=== PATIENT | female | born 1965 | race Caucasian/White ===

== ENCOUNTER → 2016-04-25 | Outpatient (CLI) | payer BC | LOC: RAD 08:09 | PROVIDERS: ATTEND Internal Medicine Medical Oncology | DX: C50.919 Malignant neoplasm of unspecified site of unspecified female breast (principal) | CPT/HCPCS: 78306; A9503; Q9969 ==

== ENCOUNTER 2016-04-29 13:10 | Day surgery (SDC) | payer BC ==
[2016-04-28 10:21] LABS: HEMATOCRIT 42.5 % (36.0-47.0); HEMOGLOBIN 14.3 g/dL (12.0-15.5); HGB HCT DIFFERENCE 0.4; MEAN CORPUSCULAR HEMOGLOBIN 28.2 pg (27.0-33.4); MEAN CORPUSCULAR HGB CONC 33.7 g/dL (32.0-36.0); MEAN CORPUSCULAR VOLUME 84 fl (80-97); RED BLOOD COUNT 5.09 10^6/uL (3.72-5.28); RED CELL DISTRIBUTION WIDTH 13.4 % (11.5-14.0); WHITE BLOOD COUNT 8.2 10^3/uL (4.0-10.5)
[2016-04-28 10:47] LABS: ANION GAP 12 (5-19); BLOOD UREA NITROGEN 18 mg/dL (7-20); CALCIUM 9.5 mg/dL (8.4-10.2); CARBON DIOXIDE 28 mmol/L (22-30); CHLORIDE 101 mmol/L (98-107); CREATININE RESULT 0.99 mg/dL (0.52-1.25); GLUCOSE 86 mg/dL (75-110); SODIUM 141.4 mmol/L (137-145)
--- NOTE | 2016-04-28 20:46 | EKG REPORT ---
SEVERITY:- ABNORMAL ECG - SINUS RHYTHM LEFT AXIS DEVIATION LEFT VENTRICULAR HYPERTROPHY BORDERLINE T ABNORMALITIES, INFERIOR LEADS : Confirmed by: Modesta Paiz 28-Apr-2016 20:46:19
[~2016-04-29 13:10] MED LIST: ACETAMINOPHEN 325 MG TABLET PO PRN; CEFAZOLIN 1 GM/D5W RTU 1 GM/50 ML RTUPB IV PRN; GLYCOPYRROLATE INJ 0.4 MG/2 ML VIAL ONE; LIDOCAINE 0.5% INJ-PF (5 MG/ML) 50 ML SDV INJ PRN; LIDOCAINE 2% INJ-PF (20 MG/ML) 10 ML AMPUL ONE; NEOSTIGMINE METHYLSULFATE 10 MG/10 ML VIAL ONE; ONDANSETRON HCL INJ/PF 4 MG/2 ML SDV ONE; RINGERS SOLUTION,LACTATED 1,000 ML IV PRN; ROCURONIUM BROMIDE INJ 50 MG/5 ML VIAL IV ONE; SUCCINYLCHOLINE CHLORIDE INJ 200 MG/10 ML VIAL ONE
[2016-04-29] MEDS ORDERED: BUPIVACAINE HCL 0.25 % INJ/PF (2.5 MG/1 ML) 30 ML VIAL ONE (14:08)
[2016-04-29] MEDS ORDERED: MIDAZOLAM 2 MG/2 ML INJ ONE (14:31)
[2016-04-29] MEDS: MIDAZOLAM 2 MG/2 ML INJ ONE ×2 (15:00→15:05)
[2016-04-29] MEDS ORDERED: FENTANYL CITRATE INJ/PF 250 MCG/5 ML AMPULE ONE (15:21)
[2016-04-29] MEDS ORDERED: PROPOFOL INJ 200 MG/20 ML VIAL IV ONE (15:22)
[2016-04-29] MEDS ORDERED: DEXMEDETOMIDINE INJ 80 MCG/20 ML VIAL IV ONE (15:22)
[2016-04-29] MEDS ORDERED: ACETAMINOPHEN 100 ML IV ONE (16:16)
--- NOTE | 2016-04-29 17:18 | Operative Report ---
Operative Report DATE OF SURGERY: 04/29/16 PREOPERATIVE DIAGNOSIS: Recurrent left breast cancer POSTOPERATIVE DIAGNOSIS: Recurrent left breast cancer OPERATION: Wide local excision of recurrent left breast cancer SURGEON: SHERRIE GUTIERREZ ANESTHESIA: GA TISSUE REMOVED OR ALTERED: Left breast mass COMPLICATIONS: None ESTIMATED BLOOD LOSS: minimal INTRAOPERATIVE FINDINGS: Approximately 3 cm subcutaneous mass located at the inferior flap of the left ashlie-breast PROCEDURE: Informed consent was obtained. Patient was brought to the operating room and placed on the operating room table in the supine position. After saturation induction of general anesthesia, patient's left breast was prepped and draped in usual sterile fashion. Pt had a flap reconstruction of the left breast. About 2-3 cm inferior to the scar edge of the mid portion of the inferior flap the subcutaneous mass was palpable. Incision was made at the inferior flaps scar. Wide ellipse of skin inferior to the scar was taken to obtain 2 cm margins from the mass and also encompassing bx needle tract. Subcutaneous fat was excised attempting to keep about 2 cm margins circumferentially around the palpable mass. The specimen was oriented with a short stitch marking superior border long stitch marking the lateral border. Palpation of the specimen revealed that the mass was in the center with good gross margins. Hemostasis was achieved with electrocautery. The flaps appeared well vascularized with no evidence of ischemia. Wound was closed with deep dermal interrupted Vicryl sutures followed by Dermabond closure of the skin. Marcaine was injected at the incision site. Patient tolerated procedure well with no apparent complications and was taken to the recovery area in stable condition.
[2016-04-29] MEDS ORDERED: OXYCODONE-ACETAMINOPHEN 5-325 MG TABLET PO PRN (17:21)
[2016-04-29] MEDS ORDERED: ONDANSETRON HCL INJ/PF 4 MG/2 ML SDV IV PRN (17:21)
[2016-04-29] MEDS ORDERED: RINGERS SOLUTION,LACTATED 1,000 ML IV PRN (17:21)
--- NOTE | 2016-04-29 17:21 | PDOC DISCHARGE SUMMARY ---
Discharge Summary (SDC) - Discharge Final Diagnosis: Recurrent left breast cancer Date of Surgery: 04/29/16 Discharge Date: 04/29/16 Condition: Good Treatment or Instructions: Left breast wide local excision. May discharge patient home when met discharge criteria. Follow-up with me next week. May shower in 24 hours. Stay active but avoid strenuous activity. Prescriptions: Oxycodone HCl/Acetaminophen [Percocet 5-325 mg Tablet] 1 tab PO ASDIR PRN #25 tablet PRN Reason: Discharge Diet: As Tolerated Discharge Activity: Activity As Tolerated - Stay active but avoid strenuous activity. Report the Following to Your Physician Immediately: Fever over 101 Degrees, Unusual Bleeding, Redness, Drainage-Foul Smelling
[2016-04-29] MEDS ORDERED: ALBUTEROL SULFATE 0.083% NEB 2.5 MG/3 ML AMPUL NEB ONE (17:40)
[2016-04-29] MEDS ORDERED: NALOXONE HCL INJ/PF 0.4 MG/1 ML SDV ONE (18:08)
[2016-04-29 21:13] VITALS: BP 130/68
[2016-04-30] MEDS ORDERED: (PENDING PHARMACY ID) (Lisinopril/Hydrochlorothiazide [Lisinopril-Hctz 20-25 Mg Tab] 1 EAC PO SCH (10:00)
[2016-04-30] MEDS ORDERED: LISINOPRIL 10 MG TABLET PO SCH (10:00)
[2016-04-30] MEDS ORDERED: HYDROCHLOROTHIAZIDE 25 MG TABLET PO SCH (10:00)
== END 2016-04-29 22:05 | disposition home or self-care (01) ==
LOC: OROUT 13:10 → 4S 19:24 → OROUT 22:05
PROVIDERS: ATTEND Surgery
PROC: 0HBU3ZX Excision of Left Breast, Percutaneous Approach, Diagnostic (ICD-10-PCS; principal; 2016-04-29 16:00)
DX: C50.912 Malignant neoplasm of unspecified site of left female breast (principal); N63 Unspecified lump in breast; I10 Essential (primary) hypertension; Z85.3 Personal history of malignant neoplasm of breast; Z79.899 Other long term (current) drug therapy; Z87.891 Personal history of nicotine dependence
CPT/HCPCS: 93005; 36415 ×2; 84132; 85027; 81025; 80048; 93010; 19120; J2250; J0690; J3490 ×3; J3010; J2310; J0330; J2405; J2704; J0131; 400; 88305; 88341; 88342

== ENCOUNTER → 2016-05-08 | Outpatient (CLI) | payer BC | LOC: RAD 09:18 | PROVIDERS: ATTEND Internal Medicine Medical Oncology | DX: C50.919 Malignant neoplasm of unspecified site of unspecified female breast (principal); R07.9 Chest pain, unspecified; R10.2 Pelvic and perineal pain; R10.13 Epigastric pain | CPT/HCPCS: 71260; 74177 ==

== ENCOUNTER 2016-06-24 09:34 | Day surgery (SDC) | payer BC ==
[~2016-06-24 09:34] MED LIST changes: -ACETAMINOPHEN 325 MG TABLET PO PRN; +BACITRACIN INJ 50,000 UNIT VIAL IR PRN; -CEFAZOLIN 1 GM/D5W RTU 1 GM/50 ML RTUPB IV PRN; -GLYCOPYRROLATE INJ 0.4 MG/2 ML VIAL ONE; -LIDOCAINE 0.5% INJ-PF (5 MG/ML) 50 ML SDV INJ PRN; -LIDOCAINE 2% INJ-PF (20 MG/ML) 10 ML AMPUL ONE; -NEOSTIGMINE METHYLSULFATE 10 MG/10 ML VIAL ONE; -ONDANSETRON HCL INJ/PF 4 MG/2 ML SDV ONE; -RINGERS SOLUTION,LACTATED 1,000 ML IV PRN; -ROCURONIUM BROMIDE INJ 50 MG/5 ML VIAL IV ONE; -SUCCINYLCHOLINE CHLORIDE INJ 200 MG/10 ML VIAL ONE
[2016-06-24 10:36] LABS: HEMATOCRIT 45.4 % (36.0-47.0); HEMOGLOBIN 15.7 g/dL (12.0-15.5); HGB HCT DIFFERENCE 1.7; MEAN CORPUSCULAR HEMOGLOBIN 28.6 pg (27.0-33.4); MEAN CORPUSCULAR HGB CONC 34.5 g/dL (32.0-36.0); MEAN CORPUSCULAR VOLUME 83 fl (80-97); RED BLOOD COUNT 5.48 10^6/uL (3.72-5.28); WHITE BLOOD COUNT 7.2 10^3/uL (4.0-10.5)
[2016-06-24] MEDS ORDERED: DIAZEPAM 5 MG TABLET ONE (10:44)
[2016-06-24] MEDS ORDERED: OXYCODONE-ACETAMINOPHEN 5-325 MG TABLET ONE ×2 (10:44→13:41)
[2016-06-24 11:07] LABS: ANION GAP 14 (5-19); BLOOD UREA NITROGEN 32 mg/dL (7-20); CALCIUM 10.2 mg/dL (8.4-10.2); CARBON DIOXIDE 24 mmol/L (22-30); CHLORIDE 102 mmol/L (98-107); CREATININE RESULT 1.05 mg/dL (0.52-1.25); GLUCOSE 103 mg/dL (75-110); POTASSIUM 4.6 mmol/L (3.6-5.0); SODIUM 140.3 mmol/L (137-145)
[2016-06-24] MEDS ORDERED: FENTANYL CITRATE INJ/PF 100 MCG/2 ML AMPUL ONE (11:56)
[2016-06-24] MEDS ORDERED: MIDAZOLAM 2 MG/2 ML INJ ONE (11:56)
[2016-06-24] MEDS ORDERED: LIDOCAINE 0.5% INJ-PF (5 MG/ML) 50 ML SDV ONE (11:59)
[2016-06-24] MEDS ORDERED: CEFAZOLIN INJ 1 GM VIAL ONE (12:11)
--- NOTE | 2016-06-24 13:20 | EKG REPORT ---
SEVERITY:- ABNORMAL ECG - SINUS RHYTHM LEFT AXIS DEVIATION LEFT VENTRICULAR HYPERTROPHY : Confirmed by: Otto Menendez MD 24-Jun-2016 13:20:18
--- NOTE | 2016-06-24 13:50 | PDOC DISCHARGE SUMMARY ---
Discharge Summary (SDC) - Discharge Final Diagnosis: Recurrent left breast cancer. Date of Surgery: 06/24/16 Discharge Date: 06/24/16 Condition: Fair Treatment or Instructions: #1 activities within moderation encouraged. #2 follow up in my office by appointment in about 1 week. Call for appointment. #3 the wounds covered clean and dry until office visit. #4 hold off on school/work until evaluation in office. #5 may shower in 48 hours, keep operated area as dry as possible. #6 discharge from ambulatory when ASU criteria met. #7 medications per medication reconciliation sheet. #8 Percocet by prescription.. Also may have one Percocet up to every 2 hours when necessary for pain greater than 4 out of 10 while in the ASU Prescriptions: Oxycodone HCl/Acetaminophen [Percocet 5-325 mg Tablet] 1 tab PO ASDIR PRN #15 tab PRN Reason: Discharge Diet: As Tolerated Respiratory Treatments at Home: Deep Breathing/Coughing Discharge Activity: Activity As Tolerated Report the Following to Your Physician Immediately: Shortness of Breath, Unusual Bleeding
[2016-06-24 15:07] VITALS: BP 116/79
--- NOTE | 2016-06-24 15:37 | Operative Report ---
Operative Report DATE OF SURGERY: 06/24/16 PREOPERATIVE DIAGNOSIS: Recurrent breast cancer POSTOPERATIVE DIAGNOSIS: Recurrent breast cancer OPERATION: #1 ultrasound evaluation of the left internal jugular vein. #2 insertion of Port-A-Cath via real-time access in the left internal jugular vein on ultrasound guidance. #3 angiogram and interpretation. SURGEON: RUFINO REED ASSOCIATE CURATOR: none ANESTHESIA: Moderate Sedation TISSUE REMOVED OR ALTERED: Not applicable. COMPLICATIONS: None ESTIMATED BLOOD LOSS: 10 mL. INTRAOPERATIVE FINDINGS: Satisfactory evaluation and access in the left internal jugular vein which was patent. Approximately 1 cm across. Satisfactory position and function of the catheter. The tip just down in the right atrium. Easy egress of blood and ingress of heparinized solution. Smooth flow of contrast through the right atrium ventricle and pulmonary outflow tract. PROCEDURE: After obtaining informed consent, the patient was taken to the [employer] Block Floor Installer and positioned supine. The neck and chest were prepared with chlorhexidine and draped out with sterile linen. Of note the patient was desirous of having this on the left side. She understands normally we use the right given the choice. After the " universal timeout", in which it was verified that the patient continued to receive antibiotic, the procedure commenced. A steriley sheathed ultrasound probe was used to evaluate the left internal jugular vein. Local anesthesia was infiltrated adjacent to the probe. Access into the left internal jugular vein was obtained using a micropuncture needle, followed by micropuncture wire and then a micropuncture catheter. This was followed by introduction of a 0.035 guidewire the tip of which was placed down into the inferior vena cava . The port sites was marked , locally anesthetized and incision made. Dissection now proceeded to the deep subcutaneous subcutaneous tissues so that a pocket for the port was made. Meticulous hemostasis was secured and the catheter was tunneled between the 2 incisions. Proximally, the catheter was now positioned using a peel-away sheath. Distally the catheter was tailored to an appropriate length and then mated to the port using the contained fixating device. The port was now placed in the pocket and the catheter optimally positioned. The port was accessed with a Mccullough needle and an angiogram done under digital subtraction. The findings as dictated. With adequate and satisfactory positioning, both lumens of the chamber were irrigated with heparinized solution. The wounds were now closed using interrupted 3-0 PDS to the subcutaneous tissues and a continuous subcuticular suture of 4-0 Monocryl to the skin. These are reinforced with Steri-Strips over benzoin and then dressings applied. Time: 0.3 Minute. Dose: 29 m Gy Contrast: 5 mls. Isovue 300. Copies of the dictated operative report for Dr. Rufino Webb MD.
== END 2016-06-24 15:15 | disposition home or self-care (01) ==
LOC: CCL 09:34
PROVIDERS: ATTEND Surgery
PROC: 05H533Z Insertion of Infusion Device into Right Subclavian Vein, Percutaneous Approach (ICD-10-PCS; principal; 2016-06-24)
DX: C50.912 Malignant neoplasm of unspecified site of left female breast (principal); I10 Essential (primary) hypertension; Z85.3 Personal history of malignant neoplasm of breast; Z88.5 Allergy status to narcotic agent; Z79.899 Other long term (current) drug therapy; Z87.891 Personal history of nicotine dependence
CPT/HCPCS: 36415; 85027; 80048; 36561; 76937; 77001; 71010; 93005; 93010; C1788; C1752; Q9967; J2250; J3490 ×2; J0690; J3010; J1644

== ENCOUNTER 2016-11-16 09:45 | Emergency (ER) | payer BC ==
[2016-11-16] MEDS ORDERED: COLCHICINE 0.6 MG TABLET PO ONE ×2 (10:25→11:18)
[2016-11-16] MEDS ORDERED: DEXAMETHASONE SOD PHOS INJ 10 MG/1 ML VIAL IM ONE (10:25)
--- NOTE | 2016-11-16 10:27 | ER Document Report ---
ED General - General Chief Complaint: Foot Pain Stated Complaint: FOOT PAIN Time Seen by Provider: 11/16/16 10:00 Mode of Arrival: Ambulatory Information source: Patient Notes: 51 yr old female presents with complaints of pain in her joints. Pt notes last week she had swelling in the 1st digit of the left foot, then on the right foot , now both feet , both knees and both hips aches. Pt has hx of breast ca, denies any calf or muscle pain. father has hx of gout TRAVEL OUTSIDE OF THE [place] IN LAST 30 DAYS: No - HPI Onset: Last week Onset/Duration: Persistent Quality of pain: Achy Severity: Moderate Pain Level: 3 Associated symptoms: Body/muscle aches Exacerbated by: Movement Relieved by: Denies Similar symptoms previously: No Recently seen / treated by doctor: Yes - normal PET scan recently - Related Data Allergies/Adverse Reactions: propoxyphene napsylate [From [employer]MyDream Interactivet-N 100] Allergy (Severe, Verified 11/16/16 09:51) Anaphylaxis Past Medical History - Social History Smoking Status: Former Smoker Cigarette use (# per day): No Chew tobacco use (# tins/day): No Smoking Education Provided: No Frequency of alcohol use: None Drug Abuse: None Family History: None, Other - gout - Past Medical History Cardiac Medical History: Reports: Hx Hypertension Denies: Hx Coronary Artery Disease, Hx Heart Attack Pulmonary Medical History: Denies: Hx Asthma, Hx Bronchitis, Hx COPD, Hx Pneumonia Neurological Medical History: Denies: Hx Cerebrovascular Accident, Hx Seizures Renal/ Medical History: Denies: Hx Peritoneal Dialysis Musculoskeltal Medical History: Denies Hx Arthritis Past Surgical History: Reports: Hx Abdominal Surgery - Immunizations Hx Diphtheria, Pertussis, Tetanus Vaccination: No Review of Systems - Review of Systems Notes: REVIEW OF SYSTEMS: CONSTITUTIONAL : Denies fever, chills, or sweats. Denies recent illness. EENT: Denies eye, ear, throat, or mouth pain or symptoms. Denies nasal or sinus congestion or discharge. Denies throat, tongue, or mouth swelling or difficulty swallowing. CARDIOVASCULAR: Denies chest pain. Denies palpitations or racing or irregular heart beat. Denies ankle edema. RESPIRATORY: Denies cough, cold, or chest congestion. Denies shortness of breath, difficulty breathing, or wheezing. GASTROINTESTINAL: Denies abdominal pain or distention. Denies nausea, vomiting , or diarrhea. Denies blood in vomitus, stools, or per rectum. Denies black, tarry stools. Denies constipation. GENITOURINARY: Denies difficulty urinating, painful urination, burning, frequency, blood in urine, or discharge. FEMALE GENITOURINARY: Denies vaginal bleeding, heavy or abnormal periods, irregular periods. Denies vaginal discharge or odor. MUSCULOSKELETAL: admits ot joint swelling, pain and warmth SKIN: Denies rash, lesions or sores. HEMATOLOGIC : Denies easy bruising or bleeding. LYMPHATIC: Denies swollen, enlarged glands. NEUROLOGICAL: Denies confusion or altered mental status. Denies passing out or loss of consciousness. Denies dizziness or lightheadedness. Denies headache. Denies weakness or paralysis or loss of use of either side. Denies problems with gait or speech. Denies sensory loss, numbness, or tingling. Denies seizures. PSYCHIATRIC: Denies anxiety or stress. Denies depression, suicidal ideation, or homicidal ideation. ALL OTHER SYSTEMS REVIEWED AND NEGATIVE. PHYSICAL EXAMINATION: GENERAL: Well-appearing, well-nourished and in no acute distress. HEAD: Atraumatic, normocephalic. EYES: Pupils equal round and reactive to light, extraocular movements intact, conjunctiva are normal. ENT: Nares patent, oropharynx clear without exudates. Moist mucous membranes. NECK: Normal range of motion, supple without lymphadenopathy LUNGS: Breath sounds clear to auscultation bilaterally and equal. No wheezes rales or rhonchi. HEART: Regular rate and rhythm without murmurs ABDOMEN: Soft, nontender, nondistended abdomen. No guarding, no rebound. No masses appreciated. Female : deferred Musculoskeletal: Normal range of motion, no pitting or edema. No cyanosis. no calf pain, no muscle invovlemnt, only bony tenderness in the foot knees and hips NEUROLOGICAL: Cranial nerves grossly intact. Normal speech, normal gait. Normal sensory, motor exams PSYCH: Normal mood, normal affect. SKIN: Warm, Dry, normal turgor, no rashes or lesions noted. Dictation was performed using [employer] voice recognition software Physical Exam - Vital signs Vitals: Temp Pulse Resp BP Pulse Ox 98.8 F 104 H 20 146/96 H 98 11/16/16 09:50 11/16/16 09:50 11/16/16 09:50 11/16/16 09:50 11/16/16 09:50 Course - Re-evaluation Re-evalutation: 11/16/16 10:26 obvious initial concern is for dvt but there is absolutely no msucle or calf or thigh pain. it is all limited to the joints. Pt also had normal RF screening in the past. Will treat as gout given presentation but labs are pending as well. 11/16/16 11:18 Uric acid was elevated, patient's presentation is consistent with gout will be treated as such with very close follow-up After performing a Medical Screening Examination, I estimate there is LOW risk for RUPTURED ESOPHAGUS, PNEUMOTHORAX, PULMONARY EMBOLISM, ACUTE CORONARY SYNDROME, OR THORACIC AORTIC DISSECTION, thus I consider the discharge disposition reasonable. I have reevaluated this patient multiple times and no significant life threatening changes are noted. The patient and I have discussed the diagnosis and risks, and we agree with discharging home with close follow-up. We also discussed returning to the Emergency Department immediately if new or worsening symptoms occur. We have discussed the symptoms which are most concerning (e.g., bloody sputum, worsening pain or shortness of breath) that necessitate immediate return. - Vital Signs Vital signs: Temp Pulse Resp BP Pulse Ox 98.8 F 104 H 20 146/96 H 98 11/16/16 09:50 11/16/16 09:50 11/16/16 09:50 11/16/16 09:50 11/16/16 09:50 - Laboratory Result Diagrams: 11/16/16 10:30 11/16/16 10:30 Laboratory results interpreted by me: 11/16/16 11/16/16 10:30 10:30 Lymphocytes % 12.6 L Monocytes % 13.4 H Est GFR (Non-Af Amer) 58 L Uric Acid 8.7 H Alkaline Phosphatase 142 H Discharge - Discharge Clinical Impression: Gout attack Qualifiers: Gout site: toe Gout etiology: unspecified cause Laterality: unspecified laterality Qualified Code(s): M10.9 - Gout, unspecified Joint pain Qualifiers: Joint pain location: foot Laterality: bilateral Qualified Code(s): M79.671 - Pain in right foot; M79.672 - Pain in left foot Condition: Stable Instructions: Gout ([facility]), Gout Diet ([facility]) Additional Instructions: Follow up with your physician tomorrow for further care or return to the ED IMMEDIATELY if symptoms worsen or new concerns occur. If you cannot afford to follow up with your primary care physician a list of low cost clinics have been provided at the end of your discharge papers as well. Prescriptions: Prednisone [Deltasone 20 mg Tablet] 3 tab PO DAILY 5 Days tablet
[2016-11-16] MEDS ORDERED: DEXAMETHASONE SOD PHOS INJ 10 MG/1 ML VIAL IV ONE (10:39)
[2016-11-16 10:47] LABS: ABSOLUTE BASOPHILS # (AUTO) 0.1 10^3/uL (0.0-0.2); ABSOLUTE EOSINOPHILS # (AUTO) 0.2 10^3/uL (0.0-0.6); ABSOLUTE LYMPHOCYTES (AUTO) 1.2 10^3/uL (0.5-4.7); ABSOLUTE MONOCYTES (AUTO) 1.2 10^3/uL (0.1-1.4); ABSOLUTE NEUT (AUTO) 6.6 10^3/uL (1.7-8.2); EOSINOPHILS % (AUTO) 2.3 % (0-6); HEMATOCRIT 36.3 % (36.0-47.0); HEMOGLOBIN 12.4 g/dL (12.0-15.5); HGB HCT DIFFERENCE 0.9; LYMPHOCYTES % (AUTO) 12.6 % (13-45); MEAN CORPUSCULAR HEMOGLOBIN 28.8 pg (27.0-33.4); MEAN CORPUSCULAR HGB CONC 34.1 g/dL (32.0-36.0); MEAN CORPUSCULAR VOLUME 85 fl (80-97); MONOCYTES % (AUTO) 13.4 % (3-13); RED BLOOD COUNT 4.28 10^6/uL (3.72-5.28); RED CELL DISTRIBUTION WIDTH 13.3 % (11.5-14.0); SEGMENTED NEUTROPHILS % (AUTO) 70.7 % (42-78); WHITE BLOOD COUNT 9.3 10^3/uL (4.0-10.5)
[2016-11-16 11:11] LABS: ALANINE AMINOTRANSFERASE 23 U/L (9-52); ALBUMIN 3.9 g/dL (3.5-5.0); ALKALINE PHOSPHATASE 142 U/L (38-126); ANION GAP 11 (5-19); ASPARTATE AMINO TRANSFERASE 20 U/L (14-36); BILIRUBIN,DIRECT 0.4 mg/dL (0.0-0.4); BILIRUBIN,TOTAL 0.7 mg/dL (0.2-1.3); BLOOD UREA NITROGEN 15 mg/dL (7-20); CALCIUM 9.5 mg/dL (8.4-10.2); CARBON DIOXIDE 26 mmol/L (22-30); CHLORIDE 102 mmol/L (98-107); GLUCOSE 95 mg/dL (75-110); POTASSIUM 4.1 mmol/L (3.6-5.0); SODIUM 138.7 mmol/L (137-145); TOTAL PROTEIN 7.2 g/dL (6.3-8.2); URIC ACID 8.7 mg/dL (2.5-7.5)
[2016-11-16 11:31] VITALS: BP 148/94
[2016-11-19 07:22] LABS: LYME DISEASE IGG AND IGM AB <0.91 ISR (0.00-0.90)
== END 2016-11-16 11:39 | disposition home or self-care (01) ==
LOC: ER 09:45
DX: M10.9 Gout, unspecified (principal); M79.671 Pain in right foot; M79.672 Pain in left foot; M79.1 Myalgia; I10 Essential (primary) hypertension; Z85.3 Personal history of malignant neoplasm of breast
CPT/HCPCS: 36591; 99283; 96374; 36415; 82962; 84550; 85025; 80053; 86618 ×2; 86617 ×2; J1100

== ENCOUNTER → 2017-10-14 | Outpatient (CLI) | payer BC ==
--- NOTE | 2017-10-14 10:08 | RADIOLOGY REPORT (SQ) ---
EXAM DESCRIPTION: CT CHEST WITH COMPLETED DATE/TIME: 10/14/2017 9:58 am REASON FOR STUDY: BREAST CA C50.912 MALIGNANT NEOPLASM OF UNSPECIFIED SITE OF LEFT FEMAL COMPARISON: 05/08/2016 TECHNIQUE: CT scan of the chest performed using helical scanning technique with dynamic intravenous contrast injection. Images reviewed with lung, soft tissue and bone windows. Reconstructed coronal and sagittal MPR and MIP images reviewed. All images stored on PACS. All CT scanners at this facility use dose modulation, iterative reconstruction, and/or weight based d osing when appropriate to reduce radiation dose to as low as reasonably achievable (ALARA). [facility]: Dose Right [facility]: CareDose [facility]: Dose Right [facility]: Teradose 4D [facility]: GoEuro CONTRAST TYPE AND DOSE: See separate report of the same date. RENAL FUNCTION: See separate report. RADIATION DOSE: . LIMITATIONS: None. FINDINGS: LUNGS AND PLEURA: No opacities, nodules, masses. No pneumothorax. No effusions. HILAR AND MEDIASTINAL STRUCTURES: No identified masses or abnormal nodes. HEART AND VASCULAR STRUCTURES: No aneurysm or dissection. No central pulmonary emboli. No pericardi al effusion. HARDWARE: None in the chest. UPPER ABDOMEN: See separate report of the CT of the abdomen. THYROID AND OTHER SOFT TISSUES: Bilateral axillary clips. BONES: No acute findings. OTHER: Left-sided port tip in the SVC. IMPRESSION: No evidence of metastatic disease. TECHNICAL DOCUMENTATION: JOB ID: [id number] Quality ID # [id number]: Final reports with documentation of one or more dose reduction techniques (e.g., Au tomated exposure control, adjustment of the mA and/or kV according to patient size, use of iterative reconstruction technique) 2010 [employer]- All Rights Reserved Reading location - IP/workstation name: [email or web address]
--- NOTE | 2017-10-14 10:15 | RADIOLOGY REPORT (SQ) ---
EXAM DESCRIPTION: CT ABD/PELVIS WITH IV ONLY COMPLETED DATE/TIME: 10/14/2017 9:58 am REASON FOR STUDY: BREAST CA C50.912 MALIGNANT NEOPLASM OF UNSPECIFIED SITE OF LEFT FEMAL COMPARISON: 05/08/2016 TECHNIQUE: CT scan of the abdomen and pelvis performed using helical scanning technique with dynamic intravenous contrast injection. No oral contrast. Images reviewed with lung, soft tissue, and bone windows. Reconstructed coronal and sagittal MPR images reviewed. Delayed images for evaluation of the urinary system also acquired. All images stored on PACS. All CT scanners at this facility use dose modulation, iterative reconstruction, and/or weight based d osing when appropriate to reduce radiation dose to as low as reasonably achievable (ALARA). [facility]: Dose Right [facility]: CareDose [facility]: Dose Right [facility]: Teradose 4D [facility]: Lindsey Shell CONTRAST TYPE AND DOSE: contrast/concentration: Isovue 350.00 mg/ml; Total Contrast Delivered: 100.0 ml; Total Saline Delivered: 72.0 ml RENAL FUNCTION: Creatinine 1.0 RADIATION DOSE: CT Rad equipment meets quality standard of care and radiation dose reduction techniq ues were employed. CTDIvol: 15.3 - 16.1 mGy. DLP: 2569 mGy-cm.. LIMITATIONS: None. FINDINGS: LOWER CHEST: No significant findings. No nodules or infiltrates. LIVER: Normal size. No masses. No dilated ducts. SPLEEN: Normal size. No focal lesions. PANCREAS: No masses. No significant calcifications. No adjacent inflammation or peripancreatic fluid collections. Pancreatic duct not dilated. GALLBLADDER: No identified stones by CT criteria. No inflammatory changes to suggest cholecystitis. ADRENAL GLANDS: No significant masses or asymmetry. RIGHT KIDNEY AND URETER: No solid masses. No significant calcifications. No hydronephrosis or hyd roureter. LEFT KIDNEY AND URETER: No solid masses. No significant calcifications. No hydronephrosis or hydr oureter. AORTA AND VESSELS: No aneurysm. No dissection. Renal arteries, SMA, celiac without stenosis. RETROPERITONEUM: No retroperitoneal adenopathy, hemorrhage or masses. BOWEL AND PERITONEAL CAVITY: No masses or inflammatory changes. No free fluid or peritoneal masses. APPENDIX: Normal. PELVIS: No mass. No free fluid. Normal bladder. ABDOMINAL WALL: Postsurgical changes anterior abdominal wall. BONES: No acute findings. OTHER: No other significant finding. IMPRESSION: No evidence of metastatic disease. TECHNICAL DOCUMENTATION: JOB ID: [id number] Quality ID # [id number]: Final reports with documentation of one or more dose reduction techniques (e.g., Au tomated exposure control, adjustment of the mA and/or kV according to patient size, use of iterative reconstruction technique) 2010 [email or web address]- All Rights Reserved Reading location - IP/workstation name: [email or web address]
== END ==
LOC: RAD 09:03
PROVIDERS: ATTEND Internal Medicine Medical Oncology
DX: C50.912 Malignant neoplasm of unspecified site of left female breast (principal)
CPT/HCPCS: 71260; 74177; 82565

== ENCOUNTER 2018-11-20 13:59 | Inpatient (IN) | payer BC, OTHER ==
[2018-11-20] MEDS ORDERED: ACETAMINOPHEN 325 MG TABLET PO ONE (14:37)
[2018-11-20] MEDS ORDERED: RINGERS SOLUTION,LACTATED 1,000 ML IV ONE ×3 (14:37→19:26)
[2018-11-20] MEDS ORDERED: ONDANSETRON HCL INJ/PF 4 MG/2 ML SDV IV ONE (14:37)
--- NOTE | 2018-11-20 14:39 | ER Document Report ---
ED Medical Screen (RME) - General Chief Complaint: Headache Stated Complaint: CHILLS Time Seen by Provider: 11/20/18 14:36 Primary Care Provider: TA IGNACIO NP [Primary Care Provider] - Follow up as needed Mode of Arrival: Wheelchair Information source: Patient Notes: Patient presents complaining of fever and chills for the past 4 days. Patient also reports nausea vomiting diarrhea. Patient denies any abdominal tenderness. Patient does complain of bilateral flank pain. No cough or cold symptoms. hx: Breast cancer, hypertension, bilateral mastectomy with reconstruction. Port-A-Cath insertion I have greeted and performed a rapid initial assessment of this patient. A comprehensive ED assessment and evaluation of the patient, analysis of test results and completion of the medical decision making process will be conducted by additional ED providers. TRAVEL OUTSIDE OF THE [place] IN LAST 30 DAYS: No - Related Data Allergies/Adverse Reactions: propoxyphene napsylate [From Darvocet-N 100] Allergy (Severe, Verified 11/20/18 14:32) Anaphylaxis Past Medical History - Past Medical History Cardiac Medical History: Reports: Hx Hypertension Denies: Hx Coronary Artery Disease, Hx Heart Attack Pulmonary Medical History: Denies: Hx Asthma, Hx Bronchitis, Hx COPD, Hx Pneumonia Neurological Medical History: Denies: Hx Cerebrovascular Accident, Hx Seizures Renal/ Medical History: Denies: Hx Peritoneal Dialysis Musculoskeltal Medical History: Denies Hx Arthritis Past Surgical History: Reports: Hx Abdominal Surgery - Immunizations Hx Diphtheria, Pertussis, Tetanus Vaccination: No Physical Exam - Vital signs Vitals: Temp Pulse Resp BP Pulse Ox 102.8 F H 122 H 22 H 131/76 H 97 11/20/18 14:07 11/20/18 14:07 11/20/18 14:07 11/20/18 14:07 11/20/18 14:07 - Cardiovascular Rhythm: Tachycardia Heart sounds: S1 appreciated, S2 appreciated - Back Back: CVA tenderness Course - Vital Signs Vital signs: Temp Pulse Resp BP Pulse Ox 102.8 F H 122 H 22 H 131/76 H 97 11/20/18 14:07 11/20/18 14:07 11/20/18 14:07 11/20/18 14:07 11/20/18 14:07 Doctor's Discharge - Discharge Referrals: SANDEE,TA, RECYCLING COORDINATOR [Primary Care Provider] - Follow up as needed
--- NOTE | 2018-11-20 15:22 | RADIOLOGY REPORT (SQ) ---
EXAM DESCRIPTION: CHEST 2 VIEWS COMPLETED DATE/TIME: 11/20/2018 3:07 pm REASON FOR STUDY: fever COMPARISON: None. EXAM PARAMETERS: NUMBER OF VIEWS: two views TECHNIQUE: Digital Frontal and Lateral radiographic views of the chest acquired. RADIATION DOSE: NA LIMITATIONS: none FINDINGS: LUNGS AND PLEURA: No opacities, masses or pneumothorax. No pleural effusion. MEDIASTINUM AND HILAR STRUCTURES: No masses or contour abnormalities. HEART AND VASCULAR STRUCTURES: Heart normal size. No evidence for failure. BONES: No acute findings. HARDWARE: Venous access catheter at the cavoatrial junction. OTHER: No other significant finding. IMPRESSION: NO ACUTE RADIOGRAPHIC FINDING IN THE CHEST. TECHNICAL DOCUMENTATION: JOB ID: [id number] [employer] All Rights Reserved Reading location - IP/workstation name: [email or web address]
[2018-11-20 16:07] LABS: ABSOLUTE LYMPHOCYTES (AUTO) 0.6 10^3/uL (0.5-4.7); ABSOLUTE MONOCYTES (AUTO) 0.5 10^3/uL (0.1-1.4); ABSOLUTE NEUT (AUTO) 5.7 10^3/uL (1.7-8.2); BASOPHILS % (AUTO) 0.3 % (0-2); EOSINOPHILS % (AUTO) 0.4 % (0-6); HEMATOCRIT 32.8 % (36.0-47.0); HEMOGLOBIN 11.3 g/dL (12.0-15.5); LYMPHOCYTES % (AUTO) 8.3 % (13-45); MEAN CORPUSCULAR HEMOGLOBIN 29.2 pg (27.0-33.4); MEAN CORPUSCULAR HGB CONC 34.4 g/dL (32.0-36.0); MEAN CORPUSCULAR VOLUME 85 fl (80-97); MONOCYTES % (AUTO) 7.4 % (3-13); PLATELET COUNT 200 10^3/uL (150-450); RED BLOOD COUNT 3.88 10^6/uL (3.72-5.28); RED CELL DISTRIBUTION WIDTH 13.4 % (11.5-14.0); SEGMENTED NEUTROPHILS % (AUTO) 83.6 % (42-78); TOTAL CELLS COUNTED % (AUTO) 100 %; WHITE BLOOD COUNT 6.8 10^3/uL (4.0-10.5)
[2018-11-20 16:12] LABS: VENOUS BLOOD HCO3 20.4 mmol/L (20-32); VENOUS BLOOD PCO2 31.3 mmHg (35-63); VENOUS BLOOD PH 7.43 (7.30-7.42)
[2018-11-20 16:23] LABS: PROTHROMBIN TIME 15.3 SEC (11.4-15.4)
[2018-11-20 16:25] LABS: ALBUMIN 4.2 g/dL (3.5-5.0); ALKALINE PHOSPHATASE 129 U/L (38-126); ANION GAP 14 (5-19); ASPARTATE AMINO TRANSFERASE 35 U/L (14-36); BILIRUBIN,DIRECT 0.3 mg/dL (0.0-0.4); BILIRUBIN,TOTAL 0.4 mg/dL (0.2-1.3); BLOOD UREA NITROGEN 50 mg/dL (7-20); CALCIUM 9.5 mg/dL (8.4-10.2); CARBON DIOXIDE 21 mmol/L (22-30); CHLORIDE 101 mmol/L (98-107); GLUCOSE 133 mg/dL (75-110); POTASSIUM 4.6 mmol/L (3.6-5.0)
[2018-11-20] MEDS ORDERED: MORPHINE SULFATE 10 MG/ML INJ IV ONE ×2 (17:27→20:49)
--- NOTE | 2018-11-20 17:27 | ER Document Report ---
ED General - General Chief Complaint: Nausea/Vomiting/Diarrhea Stated Complaint: CHILLS Time Seen by Provider: 11/20/18 14:36 Primary Care Provider: TA IGNACIO NP [Primary Care Provider] - Follow up as needed Mode of Arrival: Wheelchair TRAVEL OUTSIDE OF THE [place] IN LAST 30 DAYS: No - HPI Notes: Patient presents with 2 days of worsening bilateral flank pain and development of fever. She has 102 fever in the emergency department. She is a 2-year cancer survivor and is currently on a chemo pill. She has a port in her left upper chest wall due to all the lymph nodes that they have taken out due to her cancer. He has been having intermittent vomiting. Denies any chest pain cough congestion or shortness of breath. Denies any dysuria. She has had kidney infections in the past and it feels similar. She denies any history of kidney stones. Denies any history of vaginal discharge smells or concern for vaginal infection. - Related Data Allergies/Adverse Reactions: propoxyphene napsylate [From [employer]-N 100] Allergy (Severe, Verified 11/20/18 14:32) Anaphylaxis Past Medical History - General Information source: Patient - Social History Smoking Status: Former Smoker Family History: None, Other Patient has suicidal ideation: No Patient has homicidal ideation: No - Past Medical History Cardiac Medical History: Reports: Hx Hypertension Denies: Hx Coronary Artery Disease, Hx Heart Attack Pulmonary Medical History: Denies: Hx Asthma, Hx Bronchitis, Hx COPD, Hx Pneumonia Neurological Medical History: Denies: Hx Cerebrovascular Accident, Hx Seizures Renal/ Medical History: Denies: Hx Peritoneal Dialysis Musculoskeletal Medical History: Denies Hx Arthritis Past Surgical History: Reports: Hx Abdominal Surgery - Immunizations Hx Diphtheria, Pertussis, Tetanus Vaccination: No Review of Systems - Review of Systems Constitutional: Fever EENT: No symptoms reported Cardiovascular: No symptoms reported Respiratory: No symptoms reported Gastrointestinal: See HPI Genitourinary: No symptoms reported Female Genitourinary: No symptoms reported Musculoskeletal: No symptoms reported Skin: No symptoms reported Hematologic/Lymphatic: No symptoms reported Neurological/Psychological: No symptoms reported Physical Exam - Vital signs Vitals: Temp Pulse Resp BP Pulse Ox 102.8 F H 122 H 22 H 131/76 H 97 11/20/18 14:07 11/20/18 14:07 11/20/18 14:07 11/20/18 14:07 11/20/18 14:07 - General General appearance: Appears well, Alert - HEENT Head: Normocephalic, Atraumatic Eyes: Normal Pupils: PERRL - Respiratory Respiratory status: No respiratory distress Chest status: Nontender Breath sounds: Normal Chest palpation: Normal - Cardiovascular Rhythm: Tachycardia Heart sounds: Normal auscultation Murmur: No - Abdominal Inspection: Normal Distension: No distension Bowel sounds: Normal Tenderness: Nontender - Back Back: Normal, Nontender, CVA tenderness - Extremities General upper extremity: Normal inspection, Normal ROM General lower extremity: Normal inspection, Normal ROM - Neurological Neuro grossly intact: Yes Cognition: Normal Orientation: AAOx4 Course - Re-evaluation Re-evalutation: 11/20/18 20:35 Patient does show some signs of urinary tract infection but not consistent with normal pyelonephritis. CT shows no acute abnormalities. She was febrile with bilateral flank pain coming to the emergency department but hemodynamically stable with a lactate of 0.9. Fluids were provided. She will be admitted antibiotics provided pending blood and urine cultures at this time. - Vital Signs Vital signs: Temp Pulse Resp BP Pulse Ox 102.8 F H 122 H 22 H 131/76 H 97 11/20/18 14:07 11/20/18 14:07 11/20/18 14:07 11/20/18 14:07 11/20/18 14:07 - Laboratory Result Diagrams: 11/20/18 15:45 11/20/18 15:45 Laboratory results interpreted by me: 11/20/18 11/20/18 11/20/18 15:45 15:45 15:45 Hgb 11.3 L Hct 32.8 L Lymph % (Auto) 8.3 L Seg Neutrophils % 83.6 H VBG pH 7.43 H VBG pCO2 31.3 L Sodium 135.6 L Carbon Dioxide 21 L BUN 50 H Creatinine 2.55 H Est GFR ( Amer) 24 L Est GFR (MDRD) Non-Af 20 L Glucose 133 H Alkaline Phosphatase 129 H Urine Protein Urine Urobilinogen Ur Leukocyte Esterase 11/20/18 19:35 Hgb Hct Lymph % (Auto) Seg Neutrophils % VBG pH VBG pCO2 Sodium Carbon Dioxide BUN Creatinine Est GFR ( Amer) Est GFR (MDRD) Non-Af Glucose Alkaline Phosphatase Urine Protein 100 H Urine Urobilinogen 2.0 H Ur Leukocyte Esterase TRACE H Discharge - Discharge Clinical Impression: Pyelonephritis Condition: Good Disposition: ADMITTED INPATIENT Admitting Provider: Jon (Hospitalist) Unit Admitted: Telemetry Referrals: TA IGNACIO NP [Primary Care Provider] - Follow up as needed
--- NOTE | 2018-11-20 17:55 | RADIOLOGY REPORT (SQ) ---
EXAM DESCRIPTION: CT ABD/PELVIS NO ORAL OR IV COMPLETED DATE/TIME: 11/20/2018 5:36 pm REASON FOR STUDY: b/l flank pain, fever, JEAN CLAUDE COMPARISON: 05/08/2016. TECHNIQUE: CT scan of the abdomen and pelvis performed without intravenous or oral contrast. Images reviewed with lung, soft tissue, and bone windows. Reconstructed coronal and sagittal MPR images revi ewed. All images stored on PACS. All CT scanners at this facility use dose modulation, iterative reconstruction, and/or weight based d osing when appropriate to reduce radiation dose to as low as reasonably achievable (ALARA). [facility]: Dose Right [facility]: CareDose [facility]: Dose Right [facility]: Teradose 4D [facility]: [employer] RADIATION DOSE: CT Rad equipment meets quality standard of care and radiation dose reduction techniq ues were employed. CTDIvol: 14.5 - 19.5 mGy. DLP: 1171 mGy-cm.mGy. LIMITATIONS: None. FINDINGS: LOWER CHEST: No abnormality. NON-CONTRASTED LIVER, SPLEEN, ADRENALS: Liver: No abnormality. Spleen: No abnormality. Adrenals: No abnormality. PANCREAS: No abnormality. GALLBLADDER: No abnormality. RIGHT KIDNEY AND URETER: No abnormality. No renal or ureteral calculi. LEFT KIDNEY AND URETER: No abnormality. No renal or ureteral calculi. AORTA AND RETROPERITONEUM: Atherosclerotic change of the infrarenal abdominal aorta, iliac,, and femo ral vessels. . No retroperitoneal masses or adenopathy. BOWEL AND PERITONEAL CAVITY: No obvious masses or inflammatory changes. No free fluid. APPENDIX: Normal. PELVIS, BLADDER, AND ABDOMINAL WALL:Urinary bladder: No abnormality. Uterus and adnexal regions: N o abnormality. BONES: Spondylolysis of L5 with grade 1 anterolisthesis of L5 on S1. Degenerative disc disease L5-S1 . OTHER: Surgical clips of the abdominal wall. IMPRESSION: NO SIGNIFICANT OR ACUTE PROCESS IN THE ABDOMEN OR PELVIS. COMMENT: Quality ID # [id number]: Final reports with documentation of one or more dose reduction techniques (e.g., Automated exposure control, adjustment of the mA and/or kV according to patient size, use of iterative reconstruction technique) TECHNICAL DOCUMENTATION: JOB ID: [id number] SC-[id number] 2010 [employer]- All Rights Reserved Reading location - IP/workstation name: [email or web address]
[2018-11-20 19:48] LABS: APPEARANCE,URINE CLOUDY; BILIRUBIN,URINE NEGATIVE (NEGATIVE); COLOR,URINE AMBER; GLUCOSE, URINE NEGATIVE (NEGATIVE); KETONES,URINE NEGATIVE (NEGATIVE); LEUKOCYTE ESTERASE,URINE TRACE (NEGATIVE); NITRITE,URINE NEGATIVE (NEGATIVE); PROTEIN,URINE 100 mg/dL (NEGATIVE); URINE SPECIFIC GRAVITY 1.012
[2018-11-20] MEDS ORDERED: CEFTRIAXONE 1 GM/D5W RTU 1 GM/50 ML RTUPB IV ONE (20:34)
[2018-11-20] MEDS ORDERED: IPRATROPIUM/ALBUTEROL 0.5-2.5 MG/3 ML AMPUL NEB PRN (20:44)
[2018-11-20] MEDS ORDERED: MAG HYDROX/AL HYDROX/SIMETH SUSP 30 ML UDCUP PO PRN (20:44)
[2018-11-20] MEDS ORDERED: METRONIDAZOLE 500 MG TABLET PO ONE (21:15)
[2018-11-20] MEDS: NORMAL SALINE 1000 ML 1,000 ML IV PRN ×2 (21:25→23:40)
[2018-11-20] MEDS: HEPARIN SOD (PORCINE) 5,000 UNIT/ML 1 ML VIAL SUBCUT SCH (22:20)
[2018-11-21] MEDS: NORMAL SALINE 1000 ML 1,000 ML IV PRN ×3 (01:42→21:16)
[2018-11-21] MEDS: METRONIDAZOLE 500 MG TABLET PO SCH ×4 (06:13→23:47)
[2018-11-21] MEDS: HEPARIN SOD (PORCINE) 5,000 UNIT/ML 1 ML VIAL SUBCUT SCH ×3 (06:13→21:23)
--- NOTE | 2018-11-21 07:00 | PDOC H&P ---
History of Present Illness Admission Date/PCP: 11/20/18 20:53 TA IGNACIO NP Patient complains of: Fever, nausea and vomiting History of Present Illness: LIBBY MALDONADO is a 53 year old female with a past medical history of breast cancer, status post bilateral mastectomy with reconstruction, cancer free on letrozole. She presents with 4 days of abdominal pain nausea vomiting of diarrhea without blood developing lower back pain prompting evaluation emergency room. She denies dysuria, polyuria, change in urine color or odor. She denies pain with eating. In the emergency room she is found to have an unremarkable CT abdomen pelvis unremarkable physical exam, mild left shift and acute renal failure. She started on an IV fluid challenge, empiric antibiotics and referred to the hospitalist for admission. Patient is currently asymptomatic she denies previous episode Past Medical History Cardiac Medical History: Reports: Hypertension Denies: Coronary Artery Disease, Myocardial Infarction Pulmonary Medical History: Denies: Asthma, Bronchitis, Chronic Obstructive Pulmonary Disease (COPD), Pneumonia Neurological Medical History: Denies: Seizures Malignancy Medical History: Reports: Breast Cancer Musculoskeltal Medical History: Denies: Arthritis Hematology: Denies: Anemia Past Surgical History Past Surgical History: Reports: Mastectomy Social History Information Source: Patient, Dr. Office Lives with: Spouse/Significant other Smoking Status: Never Smoker Frequency of Alcohol Use: None Hx Recreational Drug Use: No Hx Prescription Drug Abuse: No - Advance Directive Resuscitation Status: Full Code Family History Family History: None, Other Parental Family History Reviewed: Yes Children Family History Reviewed: Yes Sibling(s) Family History Reviewed.: Yes Medication/Allergy Allergies/Adverse Reactions: propoxyphene napsylate [From Darvocet-N 100] Allergy (Severe, Verified 11/20/18 14:32) Anaphylaxis Review of Systems Constitutional: ABSENT: chills, fever(s), headache(s), weight gain, weight loss Eyes: ABSENT: visual disturbances Ears: ABSENT: hearing changes Cardiovascular: ABSENT: chest pain, dyspnea on exertion, edema, orthropnea, palpitations Respiratory: ABSENT: cough, hemoptysis Gastrointestinal: ABSENT: abdominal pain, constipation, diarrhea, hematemesis, hematochezia, nausea, vomiting Genitourinary: ABSENT: dysuria, hematuria Musculoskeletal: ABSENT: joint swelling Integumentary: ABSENT: rash, wounds Neurological: ABSENT: abnormal gait, abnormal speech, confusion, dizziness, focal weakness, syncope Psychiatric: ABSENT: anxiety, depression, homidical ideation, suicidal ideation Endocrine: ABSENT: cold intolerance, heat intolerance, polydipsia, polyuria Hematologic/Lymphatic: ABSENT: easy bleeding, easy bruising Physical Exam Vital Signs: Temp Pulse Resp BP Pulse Ox 98.3 F 63 16 96/51 L 100 11/20/18 23:42 11/21/18 02:00 11/20/18 23:42 11/20/18 23:42 11/20/18 23:42 Intake & Output 11/19/18 11/20/18 11/21/18 11:59 11:59 11:59 Intake Total 5500 Output Total 1200 Balance 4300 Weight 107.4 kg General appearance: PRESENT: no acute distress, well-developed, well-nourished Head exam: PRESENT: atraumatic, normocephalic Eye exam: PRESENT: conjunctiva pink, EOMI, PERRLA. ABSENT: scleral icterus Ear exam: PRESENT: normal external ear exam Mouth exam: PRESENT: moist, tongue midline Neck exam: ABSENT: carotid bruit, JVD, lymphadenopathy, thyromegaly Respiratory exam: PRESENT: clear to auscultation parisa. ABSENT: rales, rhonchi, wheezes Cardiovascular exam: PRESENT: RRR. ABSENT: diastolic murmur, rubs, systolic murmur Pulses: PRESENT: normal dorsalis pedis pul Vascular exam: PRESENT: normal capillary refill GI/Abdominal exam: PRESENT: normal bowel sounds, soft. ABSENT: distended, guarding, mass, organolmegaly, rebound, tenderness Rectal exam: PRESENT: deferred Extremities exam: PRESENT: full ROM. ABSENT: calf tenderness, clubbing, pedal edema Neurological exam: PRESENT: alert, awake, oriented to person, oriented to place, oriented to time, oriented to situation, CN II-XII grossly intact. ABSENT: motor sensory deficit Psychiatric exam: PRESENT: appropriate affect, normal mood. ABSENT: homicidal ideation, suicidal ideation Skin exam: PRESENT: dry, intact, warm. ABSENT: cyanosis, rash Results Laboratory Results: 11/20/18 11/20/18 11/20/18 15:45 15:45 15:45 WBC 6.8 RBC 3.88 Hgb 11.3 L Hct 32.8 L MCV 85 MCH 29.2 MCHC 34.4 RDW 13.4 Plt Count 200 Seg Neutrophils % 83.6 H VBG pH VBG pCO2 VBG HCO3 VBG Base Excess Sodium 135.6 L Potassium 4.6 Chloride 101 Carbon Dioxide 21 L Anion Gap 14 BUN 50 H Creatinine 2.55 H Est GFR ( Amer) 24 L Glucose 133 H Lactic Acid 0.9 Calcium 9.5 Magnesium Total Bilirubin 0.4 AST 35 Alkaline Phosphatase 129 H Total Protein 8.0 Albumin 4.2 Urine Color Urine Appearance Urine pH Ur Specific [place] Urine Protein Urine Glucose (UA) Urine Ketones Urine Blood Urine Nitrite Ur Leukocyte Esterase Urine WBC (Auto) Urine RBC (Auto) 11/20/18 11/20/18 11/20/18 15:45 15:45 19:35 WBC RBC Hgb Hct MCV MCH MCHC RDW Plt Count Seg Neutrophils % VBG pH 7.43 H VBG pCO2 31.3 L VBG HCO3 20.4 VBG Base Excess -3.0 Sodium Potassium Chloride Carbon Dioxide Anion Gap BUN Creatinine Est GFR ( Amer) Glucose Lactic Acid Calcium Magnesium 1.6 Total Bilirubin AST Alkaline Phosphatase Total Protein Albumin Urine Color ABNER Urine Appearance CLOUDY Urine pH 5.0 Ur Specific [place] 1.012 Urine Protein 100 H Urine Glucose (UA) NEGATIVE Urine Ketones NEGATIVE Urine Blood NEGATIVE Urine Nitrite NEGATIVE Ur Leukocyte Esterase TRACE H Urine WBC (Auto) 17 Urine RBC (Auto) 2 Impressions: Chest X-Ray 11/20/18 14:37 IMPRESSION: NO ACUTE RADIOGRAPHIC FINDING IN THE CHEST. Abdomen/Pelvis CT 11/20/18 17:15 IMPRESSION: NO SIGNIFICANT OR ACUTE PROCESS IN THE ABDOMEN OR PELVIS. Assessment and Plan - Diagnosis (1) UTI (urinary tract infection) Is this a current diagnosis for this admission?: Yes Plan: Empiric antibiotics, IV fluid challenge, follow-up urine and blood culture (2) Acute renal failure Is this a current diagnosis for this admission?: Yes Plan: Significantly prerenal, avoid nephrotoxic meds and doses IV fluid challenge, follow-up chemistry. - Time Time Spent with patient: 25-34 minutes - Inpatient Certification Medical Necessity: Need Close Monitoring Due to Risk of Patient Decompensation
[2018-11-21 07:09] LABS: ALKALINE PHOSPHATASE 95 U/L (38-126); ANION GAP 8 (5-19); ASPARTATE AMINO TRANSFERASE 30 U/L (14-36); BILIRUBIN,DIRECT 0.2 mg/dL (0.0-0.4); BILIRUBIN,TOTAL 0.2 mg/dL (0.2-1.3); BLOOD UREA NITROGEN 42 mg/dL (7-20); CALCIUM 8.3 mg/dL (8.4-10.2); CARBON DIOXIDE 23 mmol/L (22-30); CHLORIDE 109 mmol/L (98-107); GLUCOSE 89 mg/dL (75-110); POTASSIUM 4.2 mmol/L (3.6-5.0); TOTAL PROTEIN 6.2 g/dL (6.3-8.2)
[2018-11-21 07:21] LABS: ABSOLUTE EOSINOPHILS # (AUTO) 0.1 10^3/uL (0.0-0.6); ABSOLUTE LYMPHOCYTES (AUTO) 1.2 10^3/uL (0.5-4.7); ABSOLUTE MONOCYTES (AUTO) 0.7 10^3/uL (0.1-1.4); BASOPHILS % (AUTO) 0.5 % (0-2); EOSINOPHILS % (AUTO) 1.8 % (0-6); HEMATOCRIT 26.2 % (36.0-47.0); MEAN CORPUSCULAR HEMOGLOBIN 29.3 pg (27.0-33.4); MEAN CORPUSCULAR HGB CONC 34.7 g/dL (32.0-36.0); MEAN CORPUSCULAR VOLUME 85 fl (80-97); MONOCYTES % (AUTO) 13.8 % (3-13); PLATELET COUNT 159 10^3/uL (150-450); RED CELL DISTRIBUTION WIDTH 13.5 % (11.5-14.0); SEGMENTED NEUTROPHILS % (AUTO) 59.9 % (42-78); TOTAL CELLS COUNTED % (AUTO) 100 %
[2018-11-21 07:34] LABS: HEMOGLOBIN 9.1 g/dL (12.0-15.5)
[2018-11-21] MEDS: DOCUSATE SODIUM 100 MG CAPSULE PO SCH ×2 (09:56→17:35)
--- NOTE | 2018-11-21 13:47 | PDOC PROGRESS REPORT ---
Subjective Progress Note for:: 11/21/18 Subjective:: LIBBY MALDONADO is a 53 year old female with a past medical history of breast cancer, status post bilateral mastectomy with reconstruction, cancer free on letrozole. She presents with 4 days of abdominal pain nausea vomiting of diarrhea without blood developing lower back pain prompting evaluation emergency room. She denies dysuria, polyuria, change in urine color or odor. She denies pain with eating. In the emergency room she is found to have an unremarkable CT abdomen pelvis unremarkable physical exam, mild left shift and acute renal failure. She started on an IV fluid challenge, empiric antibiotics and referred to the hospitalist for admission. Patient is currently asymptomatic she denies previous episode Reason For Visit: ARF,SEPSIS,UTI Physical Exam Vital Signs: Temp Pulse Resp BP Pulse Ox 99.3 F 69 17 90/78 L 99 11/21/18 12:00 11/21/18 12:00 11/21/18 12:00 11/21/18 12:00 11/21/18 12:00 Intake & Output 11/20/18 11/21/18 11/22/18 06:59 06:59 06:59 Intake Total 5500 Output Total 1200 Balance 4300 Weight 107.4 kg General appearance: PRESENT: no acute distress, mild distress, obese, well- developed, well-nourished Head exam: PRESENT: atraumatic, normocephalic Eye exam: PRESENT: conjunctiva pink, EOMI, PERRLA. ABSENT: scleral icterus Ear exam: PRESENT: normal external ear exam Mouth exam: PRESENT: moist, tongue midline Neck exam: ABSENT: carotid bruit, JVD, lymphadenopathy, thyromegaly Respiratory exam: PRESENT: clear to auscultation parisa. ABSENT: rales, rhonchi, wheezes Cardiovascular exam: PRESENT: RRR. ABSENT: diastolic murmur, rubs, systolic murmur Pulses: PRESENT: normal dorsalis pedis pul Vascular exam: PRESENT: normal capillary refill GI/Abdominal exam: PRESENT: normal bowel sounds, soft. ABSENT: distended, guarding, mass, organolmegaly, rebound, tenderness Rectal exam: PRESENT: deferred Extremities exam: PRESENT: full ROM. ABSENT: calf tenderness, clubbing, pedal edema Neurological exam: PRESENT: alert, awake, oriented to person, oriented to place, oriented to time, oriented to situation, CN II-XII grossly intact. ABSENT: motor sensory deficit Psychiatric exam: PRESENT: appropriate affect, normal mood. ABSENT: homicidal ideation, suicidal ideation Skin exam: PRESENT: dry, intact, warm. ABSENT: cyanosis, rash Results Laboratory Results: 11/21/18 06:19 11/21/18 06:19 11/20/18 11/20/18 11/20/18 15:45 15:45 15:45 WBC 6.8 RBC 3.88 Hgb 11.3 L Hct 32.8 L MCV 85 MCH 29.2 MCHC 34.4 RDW 13.4 Plt Count 200 Seg Neutrophils % 83.6 H VBG pH VBG pCO2 VBG HCO3 VBG Base Excess Sodium 135.6 L Potassium 4.6 Chloride 101 Carbon Dioxide 21 L Anion Gap 14 BUN 50 H Creatinine 2.55 H Est GFR ( Amer) 24 L Glucose 133 H Lactic Acid 0.9 Calcium 9.5 Magnesium Total Bilirubin 0.4 AST 35 Alkaline Phosphatase 129 H Total Protein 8.0 Albumin 4.2 Urine Color Urine Appearance Urine pH Ur Specific [place] Urine Protein Urine Glucose (UA) Urine Ketones Urine Blood Urine Nitrite Ur Leukocyte Esterase Urine WBC (Auto) Urine RBC (Auto) 11/20/18 11/20/18 11/20/18 15:45 15:45 19:35 WBC RBC Hgb Hct MCV MCH MCHC RDW Plt Count Seg Neutrophils % VBG pH 7.43 H VBG pCO2 31.3 L VBG HCO3 20.4 VBG Base Excess -3.0 Sodium Potassium Chloride Carbon Dioxide Anion Gap BUN Creatinine Est GFR ( Amer) Glucose Lactic Acid Calcium Magnesium 1.6 Total Bilirubin AST Alkaline Phosphatase Total Protein Albumin Urine Color ABNER Urine Appearance CLOUDY Urine pH 5.0 Ur Specific [place] 1.012 Urine Protein 100 H Urine Glucose (UA) NEGATIVE Urine Ketones NEGATIVE Urine Blood NEGATIVE Urine Nitrite NEGATIVE Ur Leukocyte Esterase TRACE H Urine WBC (Auto) 17 Urine RBC (Auto) 2 11/21/18 11/21/18 06:19 06:19 WBC 5.0 RBC 3.10 L Hgb 9.1 L D Hct 26.2 L MCV 85 MCH 29.3 MCHC 34.7 RDW 13.5 Plt Count 159 Seg Neutrophils % 59.9 VBG pH VBG pCO2 VBG HCO3 VBG Base Excess Sodium 139.9 Potassium 4.2 Chloride 109 H Carbon Dioxide 23 Anion Gap 8 BUN 42 H Creatinine 2.10 H Est GFR ( Amer) 30 L Glucose 89 Lactic Acid Calcium 8.3 L Magnesium Total Bilirubin 0.2 AST 30 Alkaline Phosphatase 95 Total Protein 6.2 L Albumin 3.0 L Urine Color Urine Appearance Urine pH Ur Specific [place] Urine Protein Urine Glucose (UA) Urine Ketones Urine Blood Urine Nitrite Ur Leukocyte Esterase Urine WBC (Auto) Urine RBC (Auto) Impressions: Chest X-Ray 11/20/18 14:37 IMPRESSION: NO ACUTE RADIOGRAPHIC FINDING IN THE CHEST. Abdomen/Pelvis CT 11/20/18 17:15 IMPRESSION: NO SIGNIFICANT OR ACUTE PROCESS IN THE ABDOMEN OR PELVIS. Assessment and Plan - Diagnosis (1) Acute renal failure Is this a current diagnosis for this admission?: Yes Plan: Significantly prerenal likely due to volume loss caused by nausea vomiting diarrhea. CT abdomen negative for any acute abnormalities. Improving. Euvolemic, electrolytes WNL. Avoid nephrotoxic meds, monitor electrolytes, cautious diuresis guided by volume status. (2) UTI (urinary tract infection) Is this a current diagnosis for this admission?: Yes Plan: Likely due to gram-negative rods including E. coli. Afebrile. Day 2 IV antibiotics. Day 2 IV ceftriaxone. Continue empiric IV antibiotics, follow-up urine culture. (3) Recurrent breast cancer Qualifiers: Laterality: left Qualified Code(s): C50.912 - Malignant neoplasm of unspecified site of left female breast Is this a current diagnosis for this admission?: Yes Plan: History of bilateral mastectomy. Has established oncology care as outpatient. Continue home meds. Outpatient oncology follow-up.
[2018-11-21] MEDS: ACETAMINOPHEN 325 MG TABLET PO PRN (21:16)
[2018-11-21] MEDS ORDERED: CEFTRIAXONE 1 GM/D5W RTU 1 GM/50 ML RTUPB IV SCH (22:00)
--- NOTE | 2018-11-22 00:50 | EKG REPORT ---
SEVERITY:- ABNORMAL ECG - SINUS TACHYCARDIA LEFT ANTERIOR FASCICULAR BLOCK LEFT VENTRICULAR HYPERTROPHY : Confirmed by: Modesta Paiz 22-Nov-2018 00:49:01
[2018-11-22] MEDS: HEPARIN SOD (PORCINE) 5,000 UNIT/ML 1 ML VIAL SUBCUT SCH (06:12)
[2018-11-22] MEDS: METRONIDAZOLE 500 MG TABLET PO SCH ×2 (06:12→11:25)
[2018-11-22] MEDS: NORMAL SALINE 1000 ML 1,000 ML IV PRN (06:13)
[2018-11-22] MEDS: ACETAMINOPHEN 325 MG TABLET PO PRN (06:15)
[2018-11-22 07:08] LABS: ABSOLUTE EOSINOPHILS # (AUTO) 0.1 10^3/uL (0.0-0.6); ABSOLUTE LYMPHOCYTES (AUTO) 1.4 10^3/uL (0.5-4.7); ABSOLUTE MONOCYTES (AUTO) 0.6 10^3/uL (0.1-1.4); ABSOLUTE NEUT (AUTO) 2.8 10^3/uL (1.7-8.2); BASOPHILS % (AUTO) 0.7 % (0-2); EOSINOPHILS % (AUTO) 1.9 % (0-6); HEMATOCRIT 29.2 % (36.0-47.0); HEMOGLOBIN 9.9 g/dL (12.0-15.5); LYMPHOCYTES % (AUTO) 27.5 % (13-45); MEAN CORPUSCULAR HEMOGLOBIN 28.9 pg (27.0-33.4); MEAN CORPUSCULAR VOLUME 85 fl (80-97); MONOCYTES % (AUTO) 12.7 % (3-13); PLATELET COUNT 220 10^3/uL (150-450); RED BLOOD COUNT 3.43 10^6/uL (3.72-5.28); RED CELL DISTRIBUTION WIDTH 13.3 % (11.5-14.0); SEGMENTED NEUTROPHILS % (AUTO) 57.2 % (42-78); TOTAL CELLS COUNTED % (AUTO) 100 %
[2018-11-22 07:38] LABS: ANION GAP 8 (5-19); BLOOD UREA NITROGEN 23 mg/dL (7-20); CALCIUM 8.7 mg/dL (8.4-10.2); CARBON DIOXIDE 24 mmol/L (22-30); CHLORIDE 110 mmol/L (98-107); GLUCOSE 97 mg/dL (75-110); POTASSIUM 4.4 mmol/L (3.6-5.0)
[2018-11-22] MEDS: DOCUSATE SODIUM 100 MG CAPSULE PO SCH (09:06)
[2018-11-22] MEDS ORDERED: CEFTRIAXONE 1 GM/D5W RTU 1 GM/50 ML RTUPB IV ONE (09:15)
[2018-11-22 09:31] VITALS: BP 149/68
--- NOTE | 2018-11-25 12:10 | PDOC DISCHARGE SUMMARY ---
Impression - Admit/DC Date/PCP Admission Date/Primary Care Provider: 11/20/18 20:53 TA IGNACIO NP Discharge Date: 11/22/18 - Discharge Diagnosis (1) Acute renal failure Is this a current diagnosis for this admission?: Yes (2) UTI (urinary tract infection) Is this a current diagnosis for this admission?: Yes (3) Recurrent breast cancer Is this a current diagnosis for this admission?: Yes - Additional Information Resuscitation Status: Full Code Discharge Diet: As Tolerated Discharge Activity: Activity As Tolerated, Balance Activity w/Rest Referrals: TA IGNACIO NP [Primary Care Provider] - 11/29/18 1:30 pm (HAVE PCP DRAW BMP.) Prescriptions: Ciprofloxacin HCl [Cipro 500 mg Tablet] 500 mg PO BID 4 Days #8 tablet Home Medications: Letrozole [Femara 2.5 mg Tablet] 2.5 mg PO DAILY 11/21/18 Lisdexamfetamine Dimesylate [Vyvanse] 40 mg PO QAM 11/21/18 Lisinopril/Hydrochlorothiazide [Lisinopril-Hctz 20-25 mg Tab] 1 each PO DAILY 11/21/18 Paroxetine Mesylate 7.5 mg PO QHS 11/21/18 Ciprofloxacin HCl [Cipro 500 mg Tablet] 500 mg PO BID 4 Days #8 tablet 11/22/18 History of Present Illiness History of Present Illness: LIBBY MALDONADO is a 53 year old female with a past medical history of breast cancer, status post bilateral mastectomy with reconstruction, cancer free on letrozole. She presents with 4 days of abdominal pain nausea vomiting of diarrhea without blood developing lower back pain prompting evaluation emergency room. She denies dysuria, polyuria, change in urine color or odor. She denies pain with eating. In the emergency room she is found to have an unremarkable CT abdomen pelvis unremarkable physical exam, mild left shift and acute renal failure. She started on an IV fluid challenge, empiric antibiotics and referred to the hospitalist for admission. Patient is currently asymptomatic she denies previous episode Hospital Course Hospital Course: (1) Acute renal failure Resolved. Prerenal likely due to volume loss caused by nausea vomiting diarrhea. CT abdomen negative for any acute abnormalities. Euvolemic, electrolytes WNL. Avoided nephrotoxic meds, monitor electrolytes, cautious diuresis guided by volume status. Out patient PCP follow up. (2) UTI (urinary tract infection) Likely due to gram-negative rods including E. coli. Afebrile. Cultures grow mixed urogenital natacha. Received 3 IV antibiotics. Received 3 IV ceftriaxone. Was switched to PO ciprofloxacin p.o 500 bid for another 4 days. Continue empiric IV antibiotics, follow-up urine culture. (3) Recurrent breast cancer History of bilateral mastectomy. Has established oncology care as outpatient. Continue home meds. Outpatient oncology follow-up. Physical Exam Vital Signs: Temp Pulse Resp BP Pulse Ox 98.0 F 72 18 149/68 H 100 11/22/18 10:18 11/22/18 10:18 11/22/18 10:18 11/22/18 10:18 11/22/18 10:18 General appearance: PRESENT: no acute distress, well-developed, well-nourished Head exam: PRESENT: atraumatic, normocephalic Eye exam: PRESENT: conjunctiva pink, EOMI, PERRLA. ABSENT: scleral icterus Ear exam: PRESENT: normal external ear exam Mouth exam: PRESENT: moist, tongue midline Neck exam: ABSENT: carotid bruit, JVD, lymphadenopathy, thyromegaly Respiratory exam: PRESENT: clear to auscultation parisa. ABSENT: rales, rhonchi, wheezes Cardiovascular exam: PRESENT: RRR. ABSENT: diastolic murmur, rubs, systolic murmur Pulses: PRESENT: normal dorsalis pedis pul Vascular exam: PRESENT: normal capillary refill GI/Abdominal exam: PRESENT: normal bowel sounds, soft. ABSENT: distended, guarding, mass, organolmegaly, rebound, tenderness Rectal exam: PRESENT: deferred Extremities exam: PRESENT: full ROM. ABSENT: calf tenderness, clubbing, pedal edema Neurological exam: PRESENT: alert, awake, oriented to person, oriented to place, oriented to time, oriented to situation, CN II-XII grossly intact. ABSENT: motor sensory deficit Psychiatric exam: PRESENT: appropriate affect, normal mood. ABSENT: homicidal ideation, suicidal ideation Skin exam: PRESENT: dry, intact, warm. ABSENT: cyanosis, rash Results Laboratory Results: WBC 5.0 10^3/uL (4.0-10.5) 11/22/18 06:40 RBC 3.43 10^6/uL (3.72-5.28) L 11/22/18 06:40 Hgb 9.9 g/dL (12.0-15.5) L 11/22/18 06:40 Hct 29.2 % (36.0-47.0) L 11/22/18 06:40 MCV 85 fl (80-97) 11/22/18 06:40 MCH 28.9 pg (27.0-33.4) 11/22/18 06:40 MCHC 34.0 g/dL (32.0-36.0) 11/22/18 06:40 RDW 13.3 % (11.5-14.0) 11/22/18 06:40 Plt Count 220 10^3/uL (150-450) 11/22/18 06:40 Lymph % (Auto) 27.5 % (13-45) 11/22/18 06:40 [place] % (Auto) 12.7 % (3-13) 11/22/18 06:40 Eos % (Auto) 1.9 % (0-6) 11/22/18 06:40 Baso % (Auto) 0.7 % (0-2) 11/22/18 06:40 Absolute Neuts (auto) 2.8 10^3/uL (1.7-8.2) 11/22/18 06:40 Absolute Lymphs (auto) 1.4 10^3/uL (0.5-4.7) 11/22/18 06:40 Absolute Monos (auto) 0.6 10^3/uL (0.1-1.4) 11/22/18 06:40 Absolute Eos (auto) 0.1 10^3/uL (0.0-0.6) 11/22/18 06:40 Absolute Basos (auto) 0.0 10^3/uL (0.0-0.2) 11/22/18 06:40 Seg Neutrophils % 57.2 % (42-78) 11/22/18 06:40 PT 15.3 SEC (11.4-15.4) 11/20/18 15:45 INR 1.20 11/20/18 15:45 VBG pH 7.43 (7.30-7.42) H 11/20/18 15:45 VBG pCO2 31.3 mmHg (35-63) L 11/20/18 15:45 VBG HCO3 20.4 mmol/L (20-32) 11/20/18 15:45 VBG Base Excess -3.0 mmol/L 11/20/18 15:45 Sodium 141.6 mmol/L (137-145) 11/22/18 06:40 Potassium 4.4 mmol/L (3.6-5.0) 11/22/18 06:40 Chloride 110 mmol/L (98-107) H 11/22/18 06:40 Carbon Dioxide 24 mmol/L (22-30) 11/22/18 06:40 Anion Gap 8 (5-19) 11/22/18 06:40 BUN 23 mg/dL (7-20) H 11/22/18 06:40 Creatinine 1.16 mg/dL (0.52-1.25) 11/22/18 06:40 Est GFR ( Amer) 59 (>60) L 11/22/18 06:40 Est GFR (MDRD) Non-Af 49 (>60) L 11/22/18 06:40 Glucose 97 mg/dL (75-110) 11/22/18 06:40 Lactic Acid 0.9 mmol/L (0.7-2.1) 11/20/18 15:45 Calcium 8.7 mg/dL (8.4-10.2) 11/22/18 06:40 Magnesium 1.6 mg/dL (1.6-2.3) 11/20/18 15:45 Total Bilirubin 0.2 mg/dL (0.2-1.3) 11/21/18 06:19 Direct Bilirubin 0.2 mg/dL (0.0-0.4) 11/21/18 06:19 Neonat Total Bilirubin Not Reportable 11/21/18 06:19 Neonat Direct Bilirubin Not Reportable 11/21/18 06:19 Neonat Indirect Bili Not Reportable 11/21/18 06:19 AST 30 U/L (14-36) 11/21/18 06:19 ALT 23 U/L (<35) 11/21/18 06:19 Alkaline Phosphatase 95 U/L (38-126) 11/21/18 06:19 Total Protein 6.2 g/dL (6.3-8.2) L 11/21/18 06:19 Albumin 3.0 g/dL (3.5-5.0) L 11/21/18 06:19 Urine Color ABNER 11/20/18 19:35 Urine Appearance CLOUDY 11/20/18 19:35 Urine pH 5.0 (5.0-9.0) 11/20/18 19:35 Ur Specific Superior 1.012 11/20/18 19:35 Urine Protein 100 mg/dL (NEGATIVE) H 11/20/18 19:35 Urine Glucose (UA) NEGATIVE mg/dL (NEGATIVE) 11/20/18 19:35 Urine Ketones NEGATIVE mg/dL (NEGATIVE) 11/20/18 19:35 Urine Blood NEGATIVE (NEGATIVE) 11/20/18 19:35 Urine Nitrite NEGATIVE (NEGATIVE) 11/20/18 19:35 Urine Bilirubin NEGATIVE (NEGATIVE) 11/20/18 19:35 Urine Urobilinogen 2.0 mg/dL (<2.0) H 11/20/18 19:35 Ur Leukocyte Esterase TRACE (NEGATIVE) H 11/20/18 19:35 Urine WBC (Auto) 17 /HPF 11/20/18 19:35 Urine RBC (Auto) 2 /HPF 11/20/18 19:35 U Hyaline Cast (Auto) 10 /LPF 11/20/18 19:35 Urine Bacteria (Auto) TRACE /HPF 11/20/18 19:35 Urine WBC Clumps FEW /HPF 11/20/18 19:35 Squamous Epi Cells Auto 2 /HPF 11/20/18 19:35 Urine Mucus (Auto) RARE /LPF 11/20/18 19:35 Urine Ascorbic Acid NEGATIVE (NEGATIVE) 11/20/18 19:35 Impressions: Chest X-Ray 11/20/18 14:37 IMPRESSION: NO ACUTE RADIOGRAPHIC FINDING IN THE CHEST. Abdomen/Pelvis CT 11/20/18 17:15 IMPRESSION: NO SIGNIFICANT OR ACUTE PROCESS IN THE ABDOMEN OR PELVIS. Stroke Is this a Stroke Patient?: No Acute Heart Failure - Is this a Heart Failure Patient?: No
== END 2018-11-22 11:25 | disposition home or self-care (01) | DRG 683 ==
LOC: ER 13:59 → EH 20:53 → 4N 21:55
PROVIDERS: ADMIT Internal Medicine; ATTEND Internal Medicine
DX: N17.9 Acute kidney failure, unspecified (principal); N39.0 Urinary tract infection, site not specified; I10 Essential (primary) hypertension; R11.2 Nausea with vomiting, unspecified; R19.7 Diarrhea, unspecified; C50.919 Malignant neoplasm of unspecified site of unspecified female breast; Z85.3 Personal history of malignant neoplasm of breast
CPT/HCPCS: 36415; 71046; 74176; 80048; 80053; 81001; 82803; 83605; 83735; 85025; 85610; 87040; 87086; 93005; 93010; 96361; 96374; 96375; 99285; J0696; J1642; J1644; J2270; J2405; J7030; J7120

== ENCOUNTER → 2018-12-29 | Outpatient (CLI) | payer BC, OTHER ==
--- NOTE | 2018-12-29 13:05 | RADIOLOGY REPORT (SQ) ---
EXAM DESCRIPTION: CT CHEST WITH; CT ABD/PELVIS WITH IV ORAL COMPLETED DATE/TIME: 12/29/2018 12:39 pm REASON FOR STUDY: MAL WALESKA OF UNSPECIFIED SITE OF LEFT FEMALE BREAST C50.912 MALIGNANT NEOPLASM OF U NSPECIFIED SITE OF LEFT FEMAL CONTRAST TYPE AND DOSE: contrast/concentration: Isovue 350.00 mg/ml; Total Contrast Delivered: 100.0 ml; Total Saline Delivered: 72.0 ml RENAL FUNCTION: Creatinine 1.3 COMPARISON: None. TECHNIQUE: CT scan of the chest performed using helical scanning technique with dynamic intravenous contrast injection. Images reviewed with lung, soft tissue and bone windows. Reconstructed coronal a nd sagittal MPR images reviewed. All images stored on PACS. All CT scanners at this facility use dose modulation, iterative reconstruction, and/or weight based d osing when appropriate to reduce radiation dose to as low as reasonably achievable (ALARA). [facility]: Dose Right [facility]: CareDose [facility]: Dose Right [facility]: Teradose 4D [facility]: [employer] RADIATION DOSE: CT Rad equipment meets quality standard of care and radiation dose reduction techniq ues were employed. CTDIvol: 17.6 - 18.3 mGy. DLP: 2914 mGy-cm. . LIMITATIONS: None. FINDINGS: AXILLAE: No adenopathy. There are surgical clips in the left axilla. CHEST WALL: No masses. No subcutaneous air. Postsurgical changes in the medial aspect of the left b reast. Calcifications in the lateral aspect of the right breast as well. LUNGS: There are several small ground-glass nodules now identified in the right upper lobe. These ar e best demonstrated on series 6 image 41, and image 42. The largest is more medial in location measu res 1.1 cm. The smaller lesions measure 6.8 and 5.3 mm. These are nonspecific in may represent noth ing more than focal atelectasis are airspace disease. Developing nodules cannot be excluded and thes e will need follow up. PLEURA: No effusions. No calcifications. THYROID: No masses or significant asymmetry. HILAR AND MEDIASTINAL STRUCTURES: No identified masses or abnormal nodes. AORTA AND GREAT VESSELS: No aneurysm. No dissection. PULMONARY ARTERIES: No identified pulmonary emboli. Study not optimized for the pulmonary arteries. HEART: No pericardial effusion. HARDWARE AND LIFELINES: [id number] is in place. BONES: No significant finding. OTHER: No other significant finding. IMPRESSION: No evidence of metastatic disease in the chest. COMPARISON: None. RADIATION DOSE: CT Rad equipment meets quality standard of care and radiation dose reduction techniq ues were employed. CTDIvol: 17.6 - 18.3 mGy. DLP: 2914 mGy-cm. mGy. TECHNIQUE: CT scan of the abdomen and pelvis performed with intravenous and oral contrast using heri anurag scanning technique with dynamic intravenous contrast injection. Images reviewed with lung, soft tissue and bone windows. Reconstructed coronal and sagittal MPR images reviewed. Delayed images for evaluation of the urinary system also acquired and evaluated. All images stored on PACS. All CT scanners at this facility use dose modulation, iterative reconstruction, and/or weight based d osing when appropriate to reduce radiation dose to as low as reasonably achievable (ALARA). [facility]: Dose Right [facility]: [employer] [facility]: Dose Right [facility]: Teradose 4D [facility]: [employer] FINDINGS: LIVER: There is a small hypoattenuating lesion in the periphery of the right lobe of liver . This is seen on the immediate images only. This most likely represents small hemangioma. It riana ures 3.5 mm in greatest diameter. SPLEEN: Normal size. No focal lesions. PANCREAS: No masses. No significant calcifications. No adjacent inflammation or peripancreatic flui d collections. Pancreatic duct not dilated. GALLBLADDER: No identified stones by CT criteria. No inflammatory changes to suggest cholecystitis. ADRENAL GLANDS: No significant masses or asymmetry. RIGHT KIDNEY AND URETER: No solid masses. No significant calcifications. No hydronephrosis or hyd roureter. LEFT KIDNEY AND URETER: No solid masses. No significant calcifications. No hydronephrosis or hydr oureter. AORTA AND VESSELS: No aneurysm. No dissection. Renal arteries, SMA, celiac without stenosis. RETROPERITONEUM: Occasional small retroperitoneal lymph node is identified. None are pathologic base d on size criteria. These are stable from prior study. LARGE AND SMALL BOWEL: No dilatation. No masses. No wall thickening. APPENDIX: Not visualized. ABDOMINAL WALL: Small umbilical hernia containing omental fat only. PERITONEAL CAVITY: No free air. No free fluid. No peritoneal implants or masses. PELVIS: No mass or free fluid. Normal bladder. BONES: No evidence of metastatic disease. 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 OTHER: No other significant finding. IMPRESSION: No evidence of metastatic disease in the abdomen or pelvis. TECHNICAL DOCUMENTATION: JOB ID: [id number] Quality ID # 436: Final reports with documentation of one or more dose reduction techniques (e.g., Au tomated exposure control, adjustment of the mA and/or kV according to patient size, use of iterative reconstruction technique) 2010 [employer]- All Rights Reserved Reading location - IP/workstation name: [email or web address]
--- NOTE | 2018-12-29 16:22 | RADIOLOGY REPORT (SQ) ---
EXAM DESCRIPTION: NM WHOLE BODY BONE SCAN COMPLETED DATE/TIME: 12/29/2018 4:12 pm REASON FOR STUDY: MAL WALESKA OF UNSPECIFIED SITE OF LEFT FEMALE BREAST C50.912 MALIGNANT NEOPLASM OF U NSPECIFIED SITE OF LEFT FEMAL COMPARISON: 04/25/2016 RADIONUCLIDE AND DOSE: 21.9 millicuries Tc99m HDP. The route of agent administration: Intravenous. ADDITIONAL DRUGS AND DOSES: None. TECHNIQUE: Routine delayed images at 3 hour post radionuclide injection acquired of the bony skeleto n including anterior and posterior whole-body projections and additional focused images as needed. LIMITATIONS: None. FINDINGS: BONES: There is increased uptake in the right foot involving what appears to be the base o f the 5th metatarsal possibly lateral tarsal bones and 2nd and 3rd toe near the metatarsal phalangeal joint. This is most likely posttraumatic. No findings to suggest metastatic disease. KIDNEYS: Symmetric excretion without obstruction. OTHER: No other significant finding. IMPRESSION: Abnormal uptake in the left foot as described most likely posttraumatic. No evidence of metastatic disease. COMMENT: Quality measure 147: Current bone scan is compared with any available plain radiographs, p rior bone scans, and CT/MRI. TECHNICAL DOCUMENTATION: JOB ID: [id number] [employer]- All Rights Reserved Reading location - IP/workstation name: [email or web address]
== END ==
LOC: RAD 08:15
PROVIDERS: ATTEND Internal Medicine Medical Oncology
DX: C50.912 Malignant neoplasm of unspecified site of left female breast (principal)
CPT/HCPCS: 82565; 78306; 71260; 74177; A9561; Q9969; J1642

== ENCOUNTER → 2019-06-21 | Outpatient (CLI) | payer MEDICARE, OTHER ==
--- NOTE | 2019-06-21 09:05 | RADIOLOGY REPORT (SQ) ---
EXAM DESCRIPTION: CT CHEST WITHOUT IMAGES COMPLETED DATE/TIME: 06/21/2019 8:40 am REASON FOR STUDY: R91.1 SOLITARY PULMONARY NODULE, C50.912 MALIGNANT NEOPLASM OF UNSPECIFIED R91.1 SOLITARY PULMONARY NODULE C50.912 MALIGNANT NEOPLASM OF UNSPECIFIED SITE OF LEFT FEMAL COMPARISON: 12/29/2018 TECHNIQUE: CT scan performed of the chest without intravenous contrast. Images reviewed with lung, soft tissue and bone windows. Reconstructed coronal and sagittal MPR images reviewed. All images st ored on PACS. All CT scanners at this facility use dose modulation, iterative reconstruction, and/or weight based d osing when appropriate to reduce radiation dose to as low as reasonably achievable (ALARA). [facility]: Dose Right [facility]: CareDose [facility]: Dose Right [facility]: Teradose 4D [facility]: [email or web address] RADIATION DOSE: CT Rad equipment meets quality standard of care and radiation dose reduction techniq ues were employed. CTDIvol: 18.6 mGy. DLP: 759 mGy-cm. mGy. LIMITATIONS: No technical limitations. FINDINGS: LUNGS AND PLEURA: Subpleural changes in the lung apices most likely fibrosis. Ground-glas s nodules previously described in the right upper lobe have resolved. There is a focal ground-glass opacity anterior on series 4, image 46. Again most likely focal airspace disease. No effusions. HILAR AND MEDIASTINAL STRUCTURES: No identified masses or abnormal nodes. No obvious aneurysm. HEART AND VASCULAR STRUCTURES: No aneurysm. No pericardial effusion. UPPER ABDOMEN: Small lesion previously described in the liver adjacent to the gallbladder fossa is le ss apparent on this noncontrast study. It is stable in size. THYROID AND OTHER SOFT TISSUES: No masses. No adenopathy. BONES: No significant finding. HARDWARE: None in the chest. OTHER: No other significant findings. IMPRESSION: No evidence of metastatic disease in the chest. Small ground-glass opacities previously described in the right upper lobe have resolved. TECHNICAL DOCUMENTATION: JOB ID: [id number] Quality ID # 436: Final reports with documentation of one or more dose reduction techniques (e.g., Au tomated exposure control, adjustment of the mA and/or kV according to patient size, use of iterative reconstruction technique) 2010 [employer]- All Rights Reserved Reading location - IP/workstation name: [email or web address]
== END ==
LOC: RAD 08:30
PROVIDERS: ATTEND Nurse Practitioner
DX: R91.1 Solitary pulmonary nodule (principal); C50.912 Malignant neoplasm of unspecified site of left female breast
CPT/HCPCS: 71250